=== PATIENT | female | born 1940 | race Caucasian/White ===

== ENCOUNTER 2024-08-02 16:53 | Emergency (ER) | payer MEDICARE ==
[2024-08-02 19:29] VITALS: BP 172/105; PULSE 61
== END 2024-08-02 18:15 | disposition home or self-care (01) ==
LOC: FB.ED 16:53
DX: S01.01XA Laceration without foreign body of scalp, initial encounter (principal); S09.90XA Unspecified injury of head, initial encounter; I10 Essential (primary) hypertension; E78.00 Pure hypercholesterolemia, unspecified; K21.9 Gastro-esophageal reflux disease without esophagitis; Z79.899 Other long term (current) drug therapy; Z79.82 Long term (current) use of aspirin; Z88.2 Allergy status to sulfonamides; W01.198A Fall on same level from slipping, tripping and stumbling with subsequent striking against other object, initial encounter
CPT/HCPCS: 70450; 99283

== ENCOUNTER 2024-10-07 18:14 | Emergency (ER) | payer MEDICARE ==
[2024-10-07 19:07] LABS: BILIRUBIN,URINE NEGATIVE (NEGATIVE); GLUCOSE,URINE NORMAL (NORMAL); KETONES,URINE NEGATIVE (NEGATIVE); LEUKOCYTE ESTERASE,URINE LARGE (NEGATIVE); NITRITE,URINE NEGATIVE (NEGATIVE); OCCULT BLOOD,URINE LARGE (NEGATIVE); PROTEIN,URINE 500 mg/dL (NEGATIVE); UROBILINOGEN,URINE NORMAL (NEGATIVE)
[2024-10-07 19:15] LABS: APPEARANCE,URINE CLOUDY (CLEAR); COLOR,URINE RED (YELLOW)
[2024-10-07 19:16] LABS: BACTERIA,URINE MODERATE (NS); RBC,URINE PACKED (0-5); SQUAMOUS EPITHELIAL CELLS,UR FEW (NS,R,O); WBC,URINE PACKED (0-5)
[2024-10-07] MEDS: Ciprofloxacin 500 MG Tab PO ONE (19:17)
[2024-10-07 19:18] VITALS: BP 150/70; PULSE 54
== END 2024-10-07 19:49 | disposition home or self-care (01) ==
LOC: FB.ED 18:14
DX: N39.0 Urinary tract infection, site not specified (principal); I10 Essential (primary) hypertension; E78.00 Pure hypercholesterolemia, unspecified; K21.9 Gastro-esophageal reflux disease without esophagitis; M19.90 Unspecified osteoarthritis, unspecified site; Z90.89 Acquired absence of other organs; Z88.8 Allergy status to other drugs, medicaments and biological substances; Z79.82 Long term (current) use of aspirin; Z79.899 Other long term (current) drug therapy
CPT/HCPCS: 81001; 87086; 87088; 87186; 99283; A9270